=== PATIENT | female | born 1965 | race Asian ===

== ENCOUNTER → 2017-01-13 | Outpatient (CLI) | payer MEDICAID | LOC: FIMAGING 09:03 | PROVIDERS: ATTEND Psychiatry & Neurology Neurology | DX: M51.26 Other intervertebral disc displacement, lumbar region (principal); M51.27 Other intervertebral disc displacement, lumbosacral region; M50.20 Other cervical disc displacement, unspecified cervical region; M48.02 Spinal stenosis, cervical region ==